=== PATIENT | male | born 1995 | race Caucasian/White ===

== ENCOUNTER 2021-08-12 19:45 | Emergency (ER) | payer MEDICAID, SELFPAY ==
[2021-08-12 20:11] VITALS: BP 132/71; PULSE 64; RESP 16; TEMP 36.7; O2SAT 100; BMI 22.0
--- NOTE | 2021-08-12 23:02 | ED_ITS ---
HPI - Neck Pain/Injury General Chief Complaint: Neck Pain/Injury Stated Complaint: Neck/Shoulder pain Time Seen by Provider: 08/12/21 23:02 Source: patient Mode of arrival: ambulatory Limitations: no limitations History of Present Illness HPI Narrative: Patient is a 25-year-old male with no significant past medical history who presents with 1 day of left-sided neck and shoulder pain. He states it started last night and is worse when he looks to the left. He try taking some ibuprofen when this happen to him about a month ago and it helped but he says it keeps happening. He states he has been sleeping differently due to a work situation . He denies any fevers. Related Data Previous Rx's Medication Instructions Recorded cyclobenzaprine 5 mg tablet 5 mg PO TID PRN #7 tab 08/12/21 Allergies Allergy/AdvReac Type Severity Reaction Status Date / Time No Known Allergies Allergy Unverified 08/12/21 23:02 Review of Systems Review of Systems: Yes all other systems are reviewed and are negative FOR[facility] Past Medical History Medical History No known health problems Social History Social History Advance Directives: No Advance Directives Information Provided: No Physical Exam Vital Signs: Vital Signs: Last Vital Signs Temp 98.1 F 08/12/21 20:11 Pulse 64 08/12/21 20:11 Resp 16 08/12/21 20:11 BP 132/71 08/12/21 20:11 Pulse Ox 100 08/12/21 20:11 Body Mass Index 22.0 Const: General: cooperative, healthy appearing, comfortable, no acute distress and well developed Orientation/consciousness: patient oriented x3 Limitations: no limitations HENMT: Head: Yes normal to inspection Eyes: General: appearance normal, both eyes and all related structures Neck: Neck: Yes normal visual inspection, Yes full ROM, Yes no lymphadenopathy and Yes no meningeal signs Resp: Effort & Inspection: normal respiratory effort and able to speak in complete sentences Back/Spine/Pelvis: Other: right sided rhomboid tenderness Cervical Spine: cervical muscular tenderness, cervical spasm (low right side) and No Cervical spine tenderness Skin: General skin exam: no rashes or lesions noted Neuro: General: patient oriented x3 and no meningeal signs Extrem: General: Yes normal to inspection Discharge Plan Discharge Clinical Impression: Muscle spasm of left shoulder Patient Disposition: Home, Self-Care Instructions: Muscle Spasm (ED) Prescriptions: New cyclobenzaprine 5 mg tablet 5 mg PO TID PRN (Reason: muscle spasm) Qty: 7 RF: 0
[2021-08-12] MEDS: Cyclobenzaprine HCl 5 MG TABLET PO (23:19)
== END 2021-08-12 23:32 | disposition home or self-care (01) ==
PROVIDERS: Emergency Provider Internal Medicine
DX: M54.2 Cervicalgia (principal); M25.512 Pain in left shoulder; M62.838 Other muscle spasm; Z79.899 Other long term (current) drug therapy
CPT/HCPCS: 99283